=== PATIENT | male | born 1975 | race Caucasian/White ===

== ENCOUNTER → 2017-07-06 | Outpatient (CLI) | payer OTHER ==
[~2017-07-06] MED LIST: AMB10 PO; BSP15 PO; ESCI10TA17 PO; RSTOPS OP
--- NOTE | 2017-07-06 14:24 | DIAGNOSTIC IMAGING REPORT ---
CHEST 2 VIEWS ROUTINE CLINICAL HISTORY: Annual physical exam. Screen for TB. COMPARISON STUDY: No previous studies for comparison. FINDINGS: Lung volumes are normal. Lungs are clear. No pneumothorax or pleural effusion is present. Cardiomediastinal silhouette is normal. Pulmonary vascularity is normal. No calcified pulmonary nodules are identified. IMPRESSION: Normal PA and lateral chest radiographs. Electronically signed by: Luis Belcher M.D. 07/06/2017 2:23 PM Dictated Date/Time: 07/06/2017 2:22 PM
== END | disposition home or self-care (01) ==
LOC: C.RAD1850 14:15
PROVIDERS: ATTEND Family Medicine
DX: Z02.1 Encounter for pre-employment examination (principal)